=== PATIENT | female | born 1995 | race Caucasian/White ===

== ENCOUNTER → 2016-10-03 | Outpatient (CLI) | payer BC, OTHER ==
[~2016-10-03] MED LIST: APRI28 PO; GLC/500 PO; OXYC-57 PO
--- NOTE | 2016-10-03 14:18 | DIAGNOSTIC IMAGING REPORT ---
LEFT KNEE MRI HISTORY: Left KNEE Pain, eval FOR ACL TEAR COMPARISON STUDY: None. TECHNIQUE: Multiplanar multisequence MRI of the left knee was performed according to standard department protocol without the use of contrast. FINDINGS: Menisci: The medial and lateral menisci are intact. Ligaments: Full-thickness ACL tear. The MCL, ACL, and LCL are intact. Extensor mechanism: The quadriceps tendon and patellar ligament are intact. Articular cartilage and bone: No fracture or dislocation. Small contusions within the lateral femoral condyle and lateral tibial plateau. The cartilage is intact. Joint effusion: Small Soft tissues: Mild prepatellar soft tissue edema. Small popliteal cyst. There is fluid surrounding the popliteal cyst which may represent partial rupture. IMPRESSION: 1. Full-thickness ACL tear. 2. Small joint effusion. Electronically signed by: Wei Mera M.D. 10/03/2016 2:16 PM Dictated Date/Time: 10/03/2016 2:10 PM
== END | disposition home or self-care (01) ==
LOC: C.MRI 12:02
PROVIDERS: ATTEND Family Medicine
DX: S83.512A Sprain of anterior cruciate ligament of left knee, initial encounter (principal); X58.XXXA Exposure to other specified factors, initial encounter

== ENCOUNTER → 2016-11-04 | Day surgery (SDC) | payer BC, OTHER ==
[2016-10-18 08:18] VITALS: Ht 157.5 cm; Wt 59.1 kg
[~2016-11-04] VITALS: Ht 157.5 cm; Wt 59.1 kg
[~2016-11-04] MED LIST changes: +ATROPINE SULFATE 0.1 MG/ML 5ML SYR IV PRN; +BUPIVACAINE 0.5 % 5 MG/1 ML MPF 30ML VIAL ONE; +CEFAZOLIN 1000MG/55 ML D5W IV SCH; +DEXAMETHASONE SOD INJ 4 MG/ML VIAL ONE; +EpHEDrine SULFATE INJ 50 MG/ML AMP IV PRN; +EpINEphrine HCL INJ 1 MG/ML 5ML SYRINGE ONE; +FENTANYL CITRATE INJ 50 MCG/1 ML 2 ML VIAL ONE; +LACTATED RINGER'S 1000ML 1,000 ML IV SCH; +LIDOCAINE HCL 1% MPF 2 ML VIAL ONE; +LIDOCAINE HCL 2% 2 ML VIAL (20MG/ML) ONE; +LIDOCAINE/EPINEPHRINE 1% INJ 50 ML VIAL ONE; +MIDAZOLAM HCL 1 MG/ML 2ML VIAL ONE; +MoRPHine SULFATE 2 MG/ML CARP IV PRN; +MoRPHine SULFATE 4 MG/ML 1 ML CARP\\VIAL IV PRN; +ONDANSETRON INJ 2 MG/ML 2 ML VIAL IV PRN; +ONDANSETRON INJ 2 MG/ML 2 ML VIAL ONE; +OXYCODONE/ACETAMINOPHEN 5-325 TAB PO PRN; +PROPOFOL IV EMULSION 10 MG/ML 20 ML VIAL IV ONE; +ROPIVACAINE 0.5% 5 MG/ML 30 ML VIAL ONE
--- NOTE | 2016-11-04 06:40 | History & Physical Bridge - SC ---
H&P Re-Evaluation Bridge Note: I have examined the patient, reviewed the History & Physical and in the interval since the performance of the History & Physical I have noted the following changes of clinical significance: No changes noted
--- NOTE | 2016-11-04 10:16 | [facility] Post Operative Brief Note ---
Immediate Operative Summary Operative Date November 04, 2016. Pre-Operative Diagnosis Left Knee ACL Tear Post-Operative Diagnosis same, Lateral Meniscus Tear, Chondromalacia Procedure(s) Performed 1) Left Knee Arthroscopic Anterior Cruciate Ligament Reconstruction With Hamstring Autograft. 2) Chondroplasty Patella and Trochlea. 3) Lateral Meniscus Repair. 4) Exam Under Anesthesia Surgeon Dr. Tyler Talbot Counseling Psychologist Surgeon(s) Dr. Shikha Payan, Juan Camilo, PAMaggyC Estimated Blood Loss 5CC Findings As above Fluids (cc crystalloids) 1200 Specimens none Drains n/a Anesthesia LMA + Adductor block Complication(s) None Disposition Recovery Room / PACU (Stable)
--- NOTE | 2016-11-04 10:20 | Discharge Instructions-SurgCtr ---
Discharge Instructions Date of Service November 04, 2016. Visit Reason for Visit: Left Knee Acl Tear Discharge Discharge Diagnosis / Problem: s/p Left ACL reconstruction with autograft & Lateral meniscus repair Discharge Goals Goal(s): Decrease discomfort, Improve function, Increase independence Medications Stopped Medications Name(s): Metformin stopped one week ago. Activity Recommendations Activity Limitations: per Instructions/Follow-up section May Resume Sexual Activity: when tolerated Shower/Bathe: may shower/bathe in 3 days Driving or Machine Use: Not while on narcotics and wearing brace Anesthesia . Post Anesthesia Instructions: If you have had General Anesthesia or IV Sedation: * Do not drive today. * Resume driving when surgeon permits. * Do not make important decisions or sign legal documents today. * Call surgeon for: 1. Temperature elevations greater than 101 degrees F. 2. Uncontrollable pain. 3. Excessive bleeding. 4. Persistent nausea and vomiting. 5. Medication intolerance (nausea, vomiting or rash). * For nausea and vomiting use only clear liquids such as: tea, soda, bouillon until nausea subsides, then gradually increase diet as tolerated. * If you have any concerns or questions, call your surgeon's office. If physician is unavailable and it is an emergency, call 911 or go to the nearest emergency room. . Instructions / Follow-Up Instructions / Follow-Up Dr. Talbot or PA in 10-15 days. PT in 2-5 days. Diet Recommendations Home Diet: resume previous diet Procedures Procedures Performed: 1) Left Knee Arthroscopic Anterior Cruciate Ligament Reconstruction With Hamstring Autograft. 2) Chondroplasty Patella and Trochlea. 3) Lateral Meniscus Repair. 4) Exam Under Anesthesia Pending Studies Studies pending at discharge: no School Instructions Return To School: time frame (Within 1 week) Medical Emergencies . Who to Call and When: Medical Emergencies: If at any time you feel your situation is an emergency, please call 911 immediately. . Non-Emergent Contact Non-Emergency issues call your: Surgeon Call Non-Emergent contact if: temperature is above 101.5, your pain is not controlled, wound has increased drainage, wound has increased redness . . "Provider Documentation" section prepared by Gee Talbot. .
--- NOTE | 2016-11-04 10:21 | [facility] Operative Report ---
Operative Report Operative Date November 04, 2016. Pre-Operative Diagnosis Left Knee ACL Tear Post-Operative Diagnosis same, Lateral Meniscus Tear, Chondromalacia Procedure(s) Performed 1) Left Knee Arthroscopic Anterior Cruciate Ligament Reconstruction With Hamstring Autograft. 2) Lateral Meniscus Repair. 3) Chondroplasty Patella and Trochlea. 4) Exam Under Anesthesia Surgeon Dr. Tyler Talbot Workday Senior Associate Surgeon(s) Juan Freire PA-C Estimated Blood Loss 5CC Findings Examination Under Anesthesia: Range of motion was 15 hyperextension-135 of flexion. Ligamentous examination exhibited: Adan testing with 6 mm of anterior translation and soft endpoint, and a 1+ pivot glide. Stable: posterior drawer, varus and valgus stress testing at 0 and 30. ARTHROSCOPIC FINDINGS: 1) PATELLOFEMORAL JOINT: The patella had a small area of the distal lateral patellar facet with Outerbridge type II changes, the most distal aspect of the trochlea and possibly the articulating hyperextended portion of the medial femoral condyle had type II changes as well. 2) GUTTERS: No loose bodies. 3) MEDIAL COMPARTMENT: The medial meniscus was intact. The articular surface of the femur and tibia were otherwise intact 4) ACL/PCL: There was an empty lateral wall sign, with the stump of the torn ACL easily identifiable in the intercondylar notch. The PCL was intact. 5) LATERAL COMPARTMENT: The lateral compartment was then entered in a figure-of- four position. The femoral/tibial cartilage was normal. The lateral meniscus was had a radial tear in the posterior aspect. Fluids (cc crystalloids) 1200 Specimens none Drains n/a Anesthesia LMA + Adductor canal block Complication(s) None Disposition Recovery Room / PACU (Stable) Implants 1. Femoral Fixation with ACL Tightrope RT (Arthrex). 2. Tibial Fixation with ABS Tightrope with ABS button (Arthrex). 3. Meniscal Cinch x2 (Arthrex). 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 I recommended that their left knee anterior cruciate ligament reconstruction be performed to allow the patient to return to cutting/pivoting activities. The patient understands the rehabilitation process as well as the risks of surgery, which include bleeding, infection, re-operation, damage to nerves and arteries, continued knee pain, or regression of arthritis, arthrofibrosis (knee stiffness), failure of the graft, failure of the hardware, and the potential that the patient may not return to their previous level of activity, and deep vein thrombosis. The patient understands all of these instructions and explanations, all of their questions have been satisfactorily addressed and the patient has elected to proceed. Informed consent was signed. Description of Procedure The patient was taken to the Operating Room and placed in the supine position after Adductor nerve block and general anesthetic was administered. The surgeon initials and a multidisciplinary time-out were used to identify the left leg as the correct operative limb. Prior to the incision, 1 gram of intravenous Ancef was given. The left leg was then prepped and draped in a standard sterile fashion. The anterolateral, anteromedial, and superolateral portals were injected with the 50:50 mixture of 1% Lidocaine plain and 0.5% Bupivacaine with epinephrine, for a total of 4 cc, in the standard fashion. An anterolateral arthroscopic portal was established with 11-blade. Next, the arthroscope was introduced into the knee. The anteromedial portal was established under direct visualization using a spinal needle followed by an 11 blade in the standard fashion. The above findings were observed during the diagnostic arthroscopy. Graft [place]: The oblique planed incision was injected with 6 cc of the above noted 50:50 mixture. With the knee bent 40-50 degrees a #10-blade was used to make sharp dissection approximately 5 cm. Blunt dissection was used to identify the Sartorious fascia. This was incised along its superior border and T distally. The Gracilis and Semitendinosus were identified and tagged. All adhesions were bluntly and sharply dissected off the tendons. The tendons were sharply dissected off the bone distally and a Krackow stitch was placed with a # 2 FiberWire. The tendons were delivered into the wound and the remaining adhesions were removed. A closed end graft harvester was used to then harvest the tendons in the standard fashion. The graft was placed on the back table for preparation. All excess muscle was removed. The ends of the tendons were whipped stitched with 3-0 Vicryl and passed through the ABS and RT Tightropes, where the ends were then secured with a FiberLoop. 2-0 Vicryl was used to yoni the 20mm from either end of the TightRopes and the knot docked in the standard fashion, on the tibial side a second yoni was placed at 10 mm in the same fashion. It was quadrupled over and found to fit an 8 mm sizer, for the femoral side and a 8.5 mm sizer on the tibial side. The graft length was 65 mm. The graft was tensioned on the back table and 15 PSI and covered with a moist sponge until later use. After completing the diagnostic arthroscopy, [the lateral meniscus tear was prepared, removing any frayed surface with a mechanical shaver. The capsule and margins of the tear were prepared with mechanical shaver as well as a mace rasp. Then a vertical mattress suture was placed in the most posterior aspect using the Meniscal Cinch all inside technique. A second horizontal mattress was also placed in similar technique. The meniscus was probed and was found to be stable. The loose articular cartilage on the patella and trochlea were also debrided back to a stable margin with mechanical shaver. The left knee was then flexed to 90 degrees and a bump was placed underneath the posterior thigh. With the knee flexed in a 90-degree position, my attention was then focused on excising the remnants of the anterior cruciate ligament with a 5.0 mm shaver and Coolcut. A small notchplasty was performed to visualize the back wall. With the arthroscope in the anteromedial portal and the Flipcutter aiming guide was placed at the 10 Oclock position with 6 mm from the over the top position, with 110 degrees. The lateral aspect of the femur was marked and a small 2 cm incision was made to place the aiming guide down to bone. Then the 8 mm Flipcutter was introduced into the knee through the lateral femoral condyle for proper femoral tunnel placement. The Flipcutter was flipped and the tunnel was reamed for a total tunnel length of 25 mm. There was 1 mm thick back wall. A looped guidewire was then used and shuttled in through the femoral tunnel and then out the anteromedial portal. The Tibial drill guide was then brought into the knee and set on 60 degrees. A 8.5 mm Flipcutter was then introduced from the anteromedial tibia into the intra -articular position in the center of the ACL footprint even with the anterior horn of lateral meniscus and 8 mm anterior to the PCL. The tunnel was created to a depth of 35 mm. A Tigerstick was introduced through the tibial tunnel and retrieved through the anteromedial portal, along with the looped guidewire to pass the graft, insuring that there was no soft tissue bridge. The graft was then introduced intra-articularly through the anteromedial portal. The graft was then seated in an anatomic position along the femur. Fixation was accomplished on the femoral side with an ACL Tightrope RT. The graft was then introduced into the tibial tunnel and an ABS button was placed. Next, the graft was taken into full extension. There was no impingement. The graft entered the knee approximately 1 mm at 0 degrees of flexion. The arthroscopic instruments were then removed. The graft was then cycled and fixed to the knee in 0 degrees flexion with ABS Tightrope and button on the tibial side in the standard fashion. Adan and pivot shift were then tested and were negative. The knee had full range of motion. The wounds were then copiously irrigated. The portal sites were closed with 3- 0 Prolene. The Sartorius fascia was closed with 0 Vicryl in a running fashion. The deep adipose tissue had a single 3-0 Vicryl suture placed after copious irrigation. The subcutaneous tissue was closed with 3-0 Vicryl. The skin was closed with a running subcuticular using a 3-0 Prolene in a standard running fashion. The wound was dressed with Steri-Strips, Xeroform gauze, sterile gauze , ABDs, sterile Webril, and a foot to thigh Phil bandage. An Iceman device and T-ROM hinged knee brace were applied. The patient was then transferred to the Recovery Room in stable condition. Post-op Instructions: The patient will be non-weight bearing for 2 weeks with his brace locked in extension, followed by 2 weeks weightbearing as tolerated with the brace locked in extension, and after 4 weeks will be allowed to be weightbearing as tolerated with the brace locked at 90 of flexion. The patient may remove the operative dressing on Post-Op Day #2 and apply Band-Aids to the portal wounds and cover their anterior incision with gauze as needed. The patient may shower in 72 hours and is to wear the ELIZABETH for 2 weeks on their operative limb. The patient is to use the pain medicine as needed and take the ASA for 3 weeks. The patient is to start PT post-operative day 2-5. The patient was also given a handout for home quad strengthening and seated self-assisted ROM exercises, which they may begin tomorrow. The patient is to follow up with me in 10-15 days. I attest to the content of the Intraoperative Record and any orders documented therein. Any exceptions are noted below.
[2016-11-04] MEDS: HYDROmorphone INJ 1 MG/ML SYR IV PRN ×4 (10:36→11:15)
--- NOTE | 2016-11-04 11:23 | Anesthesia Progress Nt - [facility] ---
Anesthesia Post Op Note Date & Time November 04, 2016 at 11:23 Vital Signs Pain Intensity: 3 Vital Signs Past 12 Hours Date Time Temp Pulse Resp B/P Pulse Ox O2 Delivery O2 Flow Rate FiO2 11/04/16 10:27 36.7 78 12 130/58 100 Diffusion Mask 6 11/04/16 07:12 57 16 100 11/04/16 07:12 57 11/04/16 07:11 118/83 11/04/16 07:07 60 15 100 11/04/16 07:07 58 11/04/16 07:06 115/80 11/04/16 07:02 62 27 100 11/04/16 07:02 53 11/04/16 07:01 107/65 11/04/16 06:57 68 11/04/16 06:57 69 16 100 11/04/16 06:56 130/94 11/04/16 06:38 36.7 55 16 116/84 98 Room Air Notes Mental Status: alert / awake / arousable, participated in evaluation Pt Amnestic to Procedure: Yes Nausea / Vomiting: adequately controlled Pain: adequately controlled Airway Patency, RR, SpO2: stable & adequate BP & HR: stable & adequate Hydration State: stable & adequate Anesthetic Complications: no major complications apparent
[2016-11-04 11:45] VITALS: TEMP 36.9
[2016-11-04 12:43] VITALS: BP 145/80; PULSE 51; O2SAT 97
--- NOTE | 2016-11-08 12:57 | OPERATIVE REPORT ---
DATE OF OPERATION: 11/04/2016 PREOPERATIVE DIAGNOSIS: Left knee anterior cruciate ligament tear. POSTOPERATIVE DIAGNOSES: Left knee, same with lateral meniscal tear and chondromalacia. PROCEDURE: Left knee arthroscopy, ACL reconstruction using hamstring autograft, lateral meniscal repair, chondroplasty of the patella and trochlea, and exam under anesthesia. SURGEON: Gee Talbot MD DATA ANALYTICS CHIEF SCIENTIST: Cosmo Palacios MD [address] TEST EXAMINER: Juan Camilo PA-C. HISTORY OF PRESENT ILLNESS: This 21-year-old white female presented to the office with complaints of left knee instability after injuring herself. She tried conservative care measures without improvement. X-ray and MRI were obtained. She elected to proceed with surgical intervention after being educated about potential risks and outcomes. OPERATION: The patient was administered regional block and then taken to the operating room, where she was given general anesthetic. She was prepped and draped in the usual sterile fashion. Please see Dr. Talbot's operative report for specifics of the procedure. I was present for 4/5 of the case, from initial patient positioning through graft passage. The patient was taken to the recovery room in satisfactory condition. I attest to the content of the Intraoperative Record and any orders documented therein. Any exceptio ns are noted below.
== END | disposition home or self-care (01) ==
LOC: X.SURG 06:21
PROVIDERS: ATTEND Orthopaedic Surgery Sports Medicine
DX: S83.512A Sprain of anterior cruciate ligament of left knee, initial encounter (principal); W50.0XXA Accidental hit or strike by another person, initial encounter; Y93.63 Activity, rugby; E28.2 Polycystic ovarian syndrome; Z82.49 Family history of ischemic heart disease and other diseases of the circulatory system; Z80.6 Family history of leukemia

== ENCOUNTER → 2016-11-15 | Outpatient (CLI) | payer BC, OTHER ==
[~2016-11-15] MED LIST changes: -ATROPINE SULFATE 0.1 MG/ML 5ML SYR IV PRN; -BUPIVACAINE 0.5 % 5 MG/1 ML MPF 30ML VIAL ONE; -CEFAZOLIN 1000MG/55 ML D5W IV SCH; -DEXAMETHASONE SOD INJ 4 MG/ML VIAL ONE; -EpHEDrine SULFATE INJ 50 MG/ML AMP IV PRN; -EpINEphrine HCL INJ 1 MG/ML 5ML SYRINGE ONE; -FENTANYL CITRATE INJ 50 MCG/1 ML 2 ML VIAL ONE; -LACTATED RINGER'S 1000ML 1,000 ML IV SCH; -LIDOCAINE HCL 1% MPF 2 ML VIAL ONE; -LIDOCAINE HCL 2% 2 ML VIAL (20MG/ML) ONE; -LIDOCAINE/EPINEPHRINE 1% INJ 50 ML VIAL ONE; -MIDAZOLAM HCL 1 MG/ML 2ML VIAL ONE; -MoRPHine SULFATE 2 MG/ML CARP IV PRN; -MoRPHine SULFATE 4 MG/ML 1 ML CARP\\VIAL IV PRN; -ONDANSETRON INJ 2 MG/ML 2 ML VIAL IV PRN; -ONDANSETRON INJ 2 MG/ML 2 ML VIAL ONE; -OXYCODONE/ACETAMINOPHEN 5-325 TAB PO PRN; -PROPOFOL IV EMULSION 10 MG/ML 20 ML VIAL IV ONE; -ROPIVACAINE 0.5% 5 MG/ML 30 ML VIAL ONE
== END | disposition home or self-care (01) ==
LOC: C.RDSM 14:00
PROVIDERS: ATTEND Orthopaedic Surgery Sports Medicine
DX: Z09 Encounter for follow-up examination after completed treatment for conditions other than malignant neoplasm (principal)